=== PATIENT | male | born 2000 | race Caucasian/White ===

== ENCOUNTER 2021-01-10 11:26 | Emergency (ER) | payer OTHER ==
[~2021-01-10] VITALS: Ht 190.5 cm; Wt 72.6 kg
[2021-01-10 11:44] VITALS: BP 112/80
[2021-01-10] MEDS ORDERED: FLAGYL500 M1 PO (12:29)
[2021-01-10] MEDS ORDERED: DOXYCYCLINE 10100 MG PO (12:29)
== END 2021-01-10 12:40 | disposition home or self-care (01) ==
LOC: ER 11:26
DX: S51.851A Open bite of right forearm, initial encounter (principal); S71.151A Open bite, right thigh, initial encounter; Z88.0 Allergy status to penicillin; W54.0XXA Bitten by dog, initial encounter; Y93.89 Activity, other specified; Y92.238 Other place in hospital as the place of occurrence of the external cause; Y99.8 Other external cause status